=== PATIENT | female | born 1950 | race Caucasian/White ===

== ENCOUNTER 2016-11-09 21:00 | Inpatient (IN) | payer MEDICARE, MEDICAID ==
[~2016-11-09] VITALS: Ht 162.5 cm; Wt 83.2 kg
--- NOTE | ~2016-11-09 | PR ---
[place], [place] PROGRESS NOTE NAME: GARLAND STAHL UNIT #: [id number] ROOM: 314 DOCTOR: YODIT MOYA MD BIRTHDATE: [birth year] DOS: 11/12/2016 INTERVAL NOTE CHIEF COMPLAINT: "I slept better, I think I am starting to feel better, thank you." SUMMARY OF THE VISIT: The patient was interviewed in the dining area where she was sitting at the end of the table by herself. She did engage in conversation readily and reports that she believes she is feeling better. She is less depressed, less anxious, and is experiencing less pain since the Cymbalta dose was increased. She is anxious about returning home and is hopeful that [facility] may be able to find her a place. She did reiterate that she does have a dog and she is very attached to the dog and was hoping that she would find a place that would allow pets. Along these lines, I did tell her I would be willing to sign a paper for a support animal for her, so she may keep her pet. She convincingly denies medication side effects. MENTAL STATUS: She is alert and oriented. Mood does seem to be strongly trending towards euthymia. Affect is much more appropriate. There is no symptom suggestive of hypomania or marcelo. There are no auditory or visual hallucinations. No delusions are voiced. No paranoia is present. Short, intermediate, and retirement memory are fully intact. PLAN: At the present time, I want to make certain that she is truly tolerating the dose of Cymbalta, which is at 90 mg a day. Once I know that this is true, I will feel more comfortable at releasing her home. Additionally, I do want [facility] to attempt to help her with housing options and then set up post-discharge plans. YODIT MOYA MD CM:PNTRANS [phone] YODIT MOYA MD 11/12/16 1113 interface
--- NOTE | ~2016-11-09 | DS ---
[place], [place] DISCHARGE SUMMARY NAME: GARLAND STAHL [facility] #: [id number] UNIT #: [id number] ROOM: 314 DOCTOR: JOSEFA WELLS BIRTHDATE: [birth year] DOS: 11/13/2016 HOSPITAL VISIT: This is a 65-year-old female sent from [facility] on a voluntary basis. She got lengthy history of depression with some chronic pain. She presented to [facility] acutely depressed and suicidal with a plan. She attempted suicide several weeks ago, depression has been ongoing for at least 18 years and she has had a significant history of substance abuse as a childhood with depressive symptomatology going on longer than that. Her depression has worsened over the last several months, has seen a psychiatrist as an outpatient who changed her to Risperdal for her depression and it seems to have intensified her depressive symptoms. The patient was admitted to rule out organic factors and stabilize on medication. PAST MEDICAL HISTORY: Remarkable for vitamin D deficiency, hypothyroidism and chronic pain. DIAGNOSES: AXIS I: Major depression, recurrent, severe, PTSD. MENTAL STATUS: The patient was alert and oriented to person, place, approximate time. At the time of admission, her mood was very depressed. Affect was flat, blunted on the verge of tears, multiple neurovegetative symptoms with fleeting suicidal thoughts. Today, her mood is euthymic. Affect is more appropriate. No overt signs of auditory or visual hallucinations, delusions, paranoia, marcelo, or hypomania. There is some family dynamics at home between the [id number] and the son. The plan is to assist her as an outpatient and finding possible alternative placement in an apartment on her own. HOSPITAL COURSE: The patient was started on Cymbalta to help with her depression and anxiety, but also to attempt to relieve some of her chronic pain issues. She responded very well to the medications, has voiced feeling better. No suicidal thoughts. The interventions with helping her find housing options has changed her mood significantly. PLAN: The patient will be discharged home on Cymbalta 30 mg q.a.m. and 60 mg at bedtime, this is for depression and chronic pain. She has Vistaril p.r.n. for her anxiety. She was found to be severely vitamin D deficient, was started on vitamin D and then we also augmented her antidepressant with Latuda 40 mg at bedtime to help with her severe depression treatment resistant. Patient should follow up with her psychiatrist as an outpatient for medication management and therapy and is being discharged in stable condition. [place], [place] DISCHARGE SUMMARY NAME: GARLAND STAHL UNIT #: [id number] ROOM: [facility] DOCTOR: JOSEFA WELLS BIRTHDATE: [birth year] MECCA WELLS CNP CM:DISCHARG [id number] JOSEFA WELLS 11/13/16 1240 interface
--- NOTE | ~2016-11-09 | PR ---
[place], [place] PROGRESS NOTE [id number] #: [id number] ROOM: 314 DOCTOR: YODIT MOYA MD BIRTHDATE: [birth year] DOS: 11/11/2016 CHIEF COMPLAINT: "I think I am feeling better, although I got into a big argument with my son and [id number]." SUMMARY OF THE VISIT: The patient was interviewed as she was sitting ready to eat breakfast. She does report feeling slightly better since the Cymbalta was started. She is hopeful that not only it will help with her depression and anxiety, but it will also help her chronic pain issues. She is frustrated over family dynamic issues, stating that she got into a big argument with her son and bqrljakp-[id number] last evening. She currently resides with them and wishes she had her own place so that she does not have to walk on eggshells around them. She is also worried that when she lives here if the medicine is working that her outpatient psychiatrist will change her medicine. I did give her much encouragement that the likelihood of this happening is if she reported that the meds were helping without side effects would be limited. This did seem to put her mind at rest. She does report having no side effects from the medication and is willing to allow me to adjust the medicines accordingly. MENTAL STATUS: She is alert and oriented to person, place and time. Mood does seem to be strongly trending towards euthymia. Affect is much more appropriate. There are no symptoms of marcelo or hypomania. There are no auditory or visual hallucinations, delusions or paranoia. Short, intermediate, and long-term memory are intact. PLAN: I will increase the Cymbalta now to 30 mg in the morning and 60 mg at night. Continue to engage her in individual and rowley milieu activity with the ultimate plan to return home when psychiatrically stable. YODIT MOYA MD CM:PNTRANS 0840 YODIT MOYA MD 11/11/1637 interface
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
[2016-11-09] MEDS ORDERED: ACETAMINOPHEN-O1 TAB PO (21:12)
[2016-11-09] MEDS ORDERED: OXYBUTYNIN CHLOR5 MG PO (21:13)
[2016-11-09] MEDS ORDERED: ALLEGRA ALLERG180 M2 PO (21:16)
[2016-11-09] MEDS ORDERED: TIZANIDINE HCL4 MG PO (21:16)
[2016-11-09] MEDS ORDERED: GABAPENTIN600 MG PO (21:17)
[2016-11-09] MEDS ORDERED: ROPINIROLE HYDRO1 MG PO (21:18)
[2016-11-09] MEDS ORDERED: ROPINIROLE HY0.25 MG PO (21:19)
[2016-11-09] MEDS ORDERED: PREDNISONE5 MG PO (21:20)
[2016-11-09] MEDS ORDERED: FLOVENT HFA12 GM INH (21:21)
[2016-11-09] MEDS ORDERED: LEVOTHYROXIN0.075 M1 PO (21:22)
[2016-11-09] MEDS ORDERED: GOOD NEIGHBOR150 MG PO (21:22)
[2016-11-09] MEDS ORDERED: ASPIRIN ADULT L81 M1 PO (21:25)
[2016-11-09] MEDS ORDERED: B12100 MC1 PO (21:26)
[2016-11-10 01:42] VITALS: BP 158/90
[2016-11-10 06:48] LABS: BASO % 0.6 % (0.0-1.0); EOS # 0.1 10*3/uL (0.0-0.4); EOS % 1.1 % (1.0-4.0); HEMATOCRIT 38.1 % (37.0-47.0); HEMOGLOBIN 12.5 g/dl (12.0-16.0); LYMPH # 2.1 10*3/uL (1.3-4.4); LYMPH % 39.7 % (27.0-41.0); MEAN CELL VOLUME 90.9 fl (81.0-99.0); MEAN CORPUSCULAR HGB 29.8 pg (27.0-31.0); MEAN CORPUSCULAR HGB CONC 32.8 g/dl (33.0-37.0); MEAN PLATELET VOLUME 11.4 fl (9.6-12.3); MONO # 0.4 10*3/uL (0.1-1.0); MONO % 7.3 % (3.0-9.0); NEUT # 2.7 10*3/uL (2.3-7.9); NEUT % 51.1 % (47.0-73.0); PLATELET COUNT AUTOMATED 156 10*3/uL (130-400); RED BLOOD COUNT 4.19 10*6/uL (4.10-5.10); RED CELL DISTRI WIDTH 13.2 % (0-14.5); WHITE BLOOD COUNT 5.4 10*3/uL (4.8-10.8)
[2016-11-10 07:28] LABS: ALBUMIN 3.3 gm/dl (3.1-4.5); ALKALINE PHOSPHATASE 55 U/L (45-117); BILIRUBIN, TOTAL 0.4 mg/dl (0.2-1.0); BUN 11 mg/dl (7-24); CARBON DIOXIDE 27 mmol/L (21-32); CHLORIDE 112 mmol/L (98-107); CHOLESTEROL 155 mg/dL (<200); EST GLOM FILT AFRICAN AMERICAN > 60 ml/min; FREE T4 0.96 ng/dl (0.76-1.46); GLUCOSE 78 mg/dL (65-99); HDL CHOLESTEROL 96 mg/dl (40-60); LDL CHOLESTEROL 45 mg/dL (9-159); POTASSIUM 3.7 mmol/L (3.5-5.1); SGOT/AST 14 IU/L (3-35); SGPT/ALT 22 U/L (12-78); SODIUM 148 mmol/L (136-145); TOTAL PROTEIN 6.5 gm/dL (6.4-8.2); TRIGLYCERIDES 71 mg/dl (<150); VLDL CHOLESTEROL 14 mg/dL (6-40)
[2016-11-10 07:33] LABS: THYROID STIM HORMONE (HS) 0.331 uIU/ml (0.358-4.75)
[2016-11-10 07:50] VITALS: BP 149/77
[2016-11-10 08:16] LABS: HEMOGLOBIN A1c 5.4 % (4.8-5.6)
[2016-11-10 08:24] LABS: VITAMIN D, 25-HYDROXY 29.3 ng/mL (30-100)
[2016-11-10 08:25] LABS: FOLIC ACID 10.57 ng/mL (>5.38)
[2016-11-10] MEDS ORDERED: Bactroban Oint22 GM T (08:39)
[2016-11-10] MEDS ORDERED: HYDROCORTISONE30 G2 T (08:40)
[2016-11-10] MEDS ORDERED: MIRALAX POWDER255 GM PO (08:40)
[2016-11-10] MEDS ORDERED: ZOCOR20 MG PO (10:48)
[2016-11-10] MEDS ORDERED: BETAMETHASONE D0.051 TP (10:49)
[2016-11-10 14:20] LABS: BILIRUBIN NEGATIVE (NEGATIVE); BLOOD NEGATIVE (NEGATIVE); CLARITY CLEAR (CLEAR); COLOR YELLOW (YELLOW); GLUCOSE NEGATIVE (NEGATIVE); KETONE NEGATIVE (NEGATIVE); LEUKO ESTERASE NEGATIVE (NEGATIVE); NITRITE NEGATIVE (NEGATIVE); PROTEIN NEGATIVE (NEGATIVE); UROBILINOGEN 0.2 E.U./dl (0.2-1.0)
[2016-11-10 14:43] LABS: CALCIUM OXALATE CRYSTALS TRACE; RBC 0-2 rbc/hpf (0-2); URINE REFLEX COMMENT NO (NO)
[2016-11-10 19:51] VITALS: BP 153/83
[2016-11-11 07:47] VITALS: BP 150/97
[2016-11-11 20:38] VITALS: BP 149/81
[2016-11-12 09:00] VITALS: BP 136/68
[2016-11-12 20:56] VITALS: BP 138/80
[2016-11-13 07:49] VITALS: BP 130/90
[2016-11-13] MEDS ORDERED: LATU40TA PO (09:21)
[2016-11-13] MEDS ORDERED: ATARAX,VISTARIL50 MG PO (09:21)
[2016-11-13] MEDS ORDERED: DULOXETINE HCL30 MG PO (09:21)
[2016-11-13] MEDS ORDERED: DULOXETINE HCL60 MG PO (09:21)
== END 2016-11-13 13:30 | disposition home or self-care (01) | DRG 885 ==
LOC: 3N 21:00
PROVIDERS: Nurse Practitioner Adult Health
DX: F33.2 Major depressive disorder, recurrent severe without psychotic features (principal); E87.0 Hyperosmolality and hypernatremia; R45.851 Suicidal ideations; Z62.810 Personal history of physical and sexual abuse in childhood; E03.9 Hypothyroidism, unspecified; F43.10 Post-traumatic stress disorder, unspecified; J44.9 Chronic obstructive pulmonary disease, unspecified; I10 Essential (primary) hypertension; K21.9 Gastro-esophageal reflux disease without esophagitis; K58.9 Irritable bowel syndrome, unspecified; Z88.5 Allergy status to narcotic agent; Z91.09 Other allergy status, other than to drugs and biological substances; R00.0 Tachycardia, unspecified; E53.8 Deficiency of other specified B group vitamins; G62.9 Polyneuropathy, unspecified; G89.4 Chronic pain syndrome; G43.909 Migraine, unspecified, not intractable, without status migrainosus; M79.7 Fibromyalgia; F41.9 Anxiety disorder, unspecified